=== PATIENT | female | born 1960 | race Caucasian/White ===

== ENCOUNTER 2022-10-10 07:24 | Outpatient (REF) | payer OTHER, SELFPAY ==
--- NOTE | ~2022-10-10 | XR_ITS ---
EXAMINATION: XR HAND/WRIST, BILATERAL XR KNEE, BILATERAL XR AP STANDING VIEW BOTH KNEES XR FOOT, BILATERAL XR ANKLE, BILATERAL CLINICAL INFORMATION: Arthropathic psoriasis. COMPARISON: None available. TECHNIQUE: 4 views of each hand/wrist. AP standing view both knees. 3 views of each knee. 3 views of each ankle. 3 views of each foot. 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 Mild osteoarthritis of the 1st interphalangeal joint. No periarticular osteopenia, erosions, or suspicious soft tissue calcifications. 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 Mild osteoarthritis of the 1st interphalangeal joint. No periarticular osteopenia, erosions, or suspicious soft tissue calcifications. Small chronic ossification at the tip of the ulnar styloid. Bilateral knees: No joint space narrowing. Bone mineralization is normal. No joint effusions. No acute abnormality or suspicious soft tissue calcification. Right ankle/foot: Mild soft tissue swelling/subcutaneous edema. No significant degenerative findings. The ankle mortise is preserved. No periarticular osteopenia, erosions, or suspicious soft tissue calcifications. No acute osseous abnormality. Left ankle/foot: Mild soft tissue swelling/subcutaneous edema. No significant degenerative findings. The ankle mortise is preserved. No periarticular osteopenia, erosions, or suspicious soft tissue calcifications. No acute osseous abnormality. Incidental bone island within the 2nd metatarsal head. XR/XR hand wrist RT IMPRESSION: No evidence of an active inflammatory arthropathy. Mild degenerative findings as described.
--- NOTE | ~2022-10-10 | XR_ITS ---
EXAMINATION: XR HAND/WRIST, BILATERAL XR KNEE, BILATERAL XR AP STANDING VIEW BOTH KNEES XR FOOT, BILATERAL XR ANKLE, BILATERAL CLINICAL INFORMATION: Arthropathic psoriasis. COMPARISON: None available. TECHNIQUE: 4 views of each hand/wrist. AP standing view both knees. 3 views of each knee. 3 views of each ankle. 3 views of each foot. 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 Mild osteoarthritis of the 1st interphalangeal joint. No periarticular osteopenia, erosions, or suspicious soft tissue calcifications. 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 Mild osteoarthritis of the 1st interphalangeal joint. No periarticular osteopenia, erosions, or suspicious soft tissue calcifications. Small chronic ossification at the tip of the ulnar styloid. Bilateral knees: No joint space narrowing. Bone mineralization is normal. No joint effusions. No acute abnormality or suspicious soft tissue calcification. Right ankle/foot: Mild soft tissue swelling/subcutaneous edema. No significant degenerative findings. The ankle mortise is preserved. No periarticular osteopenia, erosions, or suspicious soft tissue calcifications. No acute osseous abnormality. Left ankle/foot: Mild soft tissue swelling/subcutaneous edema. No significant degenerative findings. The ankle mortise is preserved. No periarticular osteopenia, erosions, or suspicious soft tissue calcifications. No acute osseous abnormality. Incidental bone island within the 2nd metatarsal head. XR/XR foot LT min 3V IMPRESSION: No evidence of an active inflammatory arthropathy. Mild degenerative findings as described.
--- NOTE | ~2022-10-10 | XR_ITS ---
EXAMINATION: XR HAND/WRIST, BILATERAL XR KNEE, BILATERAL XR AP STANDING VIEW BOTH KNEES XR FOOT, BILATERAL XR ANKLE, BILATERAL CLINICAL INFORMATION: Arthropathic psoriasis. COMPARISON: None available. TECHNIQUE: 4 views of each hand/wrist. AP standing view both knees. 3 views of each knee. 3 views of each ankle. 3 views of each foot. 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 Mild osteoarthritis of the 1st interphalangeal joint. No periarticular osteopenia, erosions, or suspicious soft tissue calcifications. 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 Mild osteoarthritis of the 1st interphalangeal joint. No periarticular osteopenia, erosions, or suspicious soft tissue calcifications. Small chronic ossification at the tip of the ulnar styloid. Bilateral knees: No joint space narrowing. Bone mineralization is normal. No joint effusions. No acute abnormality or suspicious soft tissue calcification. Right ankle/foot: Mild soft tissue swelling/subcutaneous edema. No significant degenerative findings. The ankle mortise is preserved. No periarticular osteopenia, erosions, or suspicious soft tissue calcifications. No acute osseous abnormality. Left ankle/foot: Mild soft tissue swelling/subcutaneous edema. No significant degenerative findings. The ankle mortise is preserved. No periarticular osteopenia, erosions, or suspicious soft tissue calcifications. No acute osseous abnormality. Incidental bone island within the 2nd metatarsal head. XR/XR knee RT 3V IMPRESSION: No evidence of an active inflammatory arthropathy. Mild degenerative findings as described.
--- NOTE | ~2022-10-10 | XR_ITS ---
EXAMINATION: XR HAND/WRIST, BILATERAL XR KNEE, BILATERAL XR AP STANDING VIEW BOTH KNEES XR FOOT, BILATERAL XR ANKLE, BILATERAL CLINICAL INFORMATION: Arthropathic psoriasis. COMPARISON: None available. TECHNIQUE: 4 views of each hand/wrist. AP standing view both knees. 3 views of each knee. 3 views of each ankle. 3 views of each foot. 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 Mild osteoarthritis of the 1st interphalangeal joint. No periarticular osteopenia, erosions, or suspicious soft tissue calcifications. 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 Mild osteoarthritis of the 1st interphalangeal joint. No periarticular osteopenia, erosions, or suspicious soft tissue calcifications. Small chronic ossification at the tip of the ulnar styloid. Bilateral knees: No joint space narrowing. Bone mineralization is normal. No joint effusions. No acute abnormality or suspicious soft tissue calcification. Right ankle/foot: Mild soft tissue swelling/subcutaneous edema. No significant degenerative findings. The ankle mortise is preserved. No periarticular osteopenia, erosions, or suspicious soft tissue calcifications. No acute osseous abnormality. Left ankle/foot: Mild soft tissue swelling/subcutaneous edema. No significant degenerative findings. The ankle mortise is preserved. No periarticular osteopenia, erosions, or suspicious soft tissue calcifications. No acute osseous abnormality. Incidental bone island within the 2nd metatarsal head. XR/XR ankle RT min 3V IMPRESSION: No evidence of an active inflammatory arthropathy. Mild degenerative findings as described.
--- NOTE | ~2022-10-10 | XR_ITS ---
EXAMINATION: XR HAND/WRIST, BILATERAL XR KNEE, BILATERAL XR AP STANDING VIEW BOTH KNEES XR FOOT, BILATERAL XR ANKLE, BILATERAL CLINICAL INFORMATION: Arthropathic psoriasis. COMPARISON: None available. TECHNIQUE: 4 views of each hand/wrist. AP standing view both knees. 3 views of each knee. 3 views of each ankle. 3 views of each foot. 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 Mild osteoarthritis of the 1st interphalangeal joint. No periarticular osteopenia, erosions, or suspicious soft tissue calcifications. 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 Mild osteoarthritis of the 1st interphalangeal joint. No periarticular osteopenia, erosions, or suspicious soft tissue calcifications. Small chronic ossification at the tip of the ulnar styloid. Bilateral knees: No joint space narrowing. Bone mineralization is normal. No joint effusions. No acute abnormality or suspicious soft tissue calcification. Right ankle/foot: Mild soft tissue swelling/subcutaneous edema. No significant degenerative findings. The ankle mortise is preserved. No periarticular osteopenia, erosions, or suspicious soft tissue calcifications. No acute osseous abnormality. Left ankle/foot: Mild soft tissue swelling/subcutaneous edema. No significant degenerative findings. The ankle mortise is preserved. No periarticular osteopenia, erosions, or suspicious soft tissue calcifications. No acute osseous abnormality. Incidental bone island within the 2nd metatarsal head. XR/XR foot RT min 3V IMPRESSION: No evidence of an active inflammatory arthropathy. Mild degenerative findings as described.
--- NOTE | ~2022-10-10 | XR_ITS ---
EXAMINATION: XR HAND/WRIST, BILATERAL XR KNEE, BILATERAL XR AP STANDING VIEW BOTH KNEES XR FOOT, BILATERAL XR ANKLE, BILATERAL CLINICAL INFORMATION: Arthropathic psoriasis. COMPARISON: None available. TECHNIQUE: 4 views of each hand/wrist. AP standing view both knees. 3 views of each knee. 3 views of each ankle. 3 views of each foot. 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 Mild osteoarthritis of the 1st interphalangeal joint. No periarticular osteopenia, erosions, or suspicious soft tissue calcifications. 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 Mild osteoarthritis of the 1st interphalangeal joint. No periarticular osteopenia, erosions, or suspicious soft tissue calcifications. Small chronic ossification at the tip of the ulnar styloid. Bilateral knees: No joint space narrowing. Bone mineralization is normal. No joint effusions. No acute abnormality or suspicious soft tissue calcification. Right ankle/foot: Mild soft tissue swelling/subcutaneous edema. No significant degenerative findings. The ankle mortise is preserved. No periarticular osteopenia, erosions, or suspicious soft tissue calcifications. No acute osseous abnormality. Left ankle/foot: Mild soft tissue swelling/subcutaneous edema. No significant degenerative findings. The ankle mortise is preserved. No periarticular osteopenia, erosions, or suspicious soft tissue calcifications. No acute osseous abnormality. Incidental bone island within the 2nd metatarsal head. XR/XR ankle LT min 3V IMPRESSION: No evidence of an active inflammatory arthropathy. Mild degenerative findings as described.
--- NOTE | ~2022-10-10 | XR_ITS ---
EXAMINATION: XR HAND/WRIST, BILATERAL XR KNEE, BILATERAL XR AP STANDING VIEW BOTH KNEES XR FOOT, BILATERAL XR ANKLE, BILATERAL CLINICAL INFORMATION: Arthropathic psoriasis. COMPARISON: None available. TECHNIQUE: 4 views of each hand/wrist. AP standing view both knees. 3 views of each knee. 3 views of each ankle. 3 views of each foot. 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 Mild osteoarthritis of the 1st interphalangeal joint. No periarticular osteopenia, erosions, or suspicious soft tissue calcifications. 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 Mild osteoarthritis of the 1st interphalangeal joint. No periarticular osteopenia, erosions, or suspicious soft tissue calcifications. Small chronic ossification at the tip of the ulnar styloid. Bilateral knees: No joint space narrowing. Bone mineralization is normal. No joint effusions. No acute abnormality or suspicious soft tissue calcification. Right ankle/foot: Mild soft tissue swelling/subcutaneous edema. No significant degenerative findings. The ankle mortise is preserved. No periarticular osteopenia, erosions, or suspicious soft tissue calcifications. No acute osseous abnormality. Left ankle/foot: Mild soft tissue swelling/subcutaneous edema. No significant degenerative findings. The ankle mortise is preserved. No periarticular osteopenia, erosions, or suspicious soft tissue calcifications. No acute osseous abnormality. Incidental bone island within the 2nd metatarsal head. XR/XR knee standing BI IMPRESSION: No evidence of an active inflammatory arthropathy. Mild degenerative findings as described.
--- NOTE | ~2022-10-10 | XR_ITS ---
EXAMINATION: XR HAND/WRIST, BILATERAL XR KNEE, BILATERAL XR AP STANDING VIEW BOTH KNEES XR FOOT, BILATERAL XR ANKLE, BILATERAL CLINICAL INFORMATION: Arthropathic psoriasis. COMPARISON: None available. TECHNIQUE: 4 views of each hand/wrist. AP standing view both knees. 3 views of each knee. 3 views of each ankle. 3 views of each foot. 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 Mild osteoarthritis of the 1st interphalangeal joint. No periarticular osteopenia, erosions, or suspicious soft tissue calcifications. 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 Mild osteoarthritis of the 1st interphalangeal joint. No periarticular osteopenia, erosions, or suspicious soft tissue calcifications. Small chronic ossification at the tip of the ulnar styloid. Bilateral knees: No joint space narrowing. Bone mineralization is normal. No joint effusions. No acute abnormality or suspicious soft tissue calcification. Right ankle/foot: Mild soft tissue swelling/subcutaneous edema. No significant degenerative findings. The ankle mortise is preserved. No periarticular osteopenia, erosions, or suspicious soft tissue calcifications. No acute osseous abnormality. Left ankle/foot: Mild soft tissue swelling/subcutaneous edema. No significant degenerative findings. The ankle mortise is preserved. No periarticular osteopenia, erosions, or suspicious soft tissue calcifications. No acute osseous abnormality. Incidental bone island within the 2nd metatarsal head. XR/XR hand wrist LT IMPRESSION: No evidence of an active inflammatory arthropathy. Mild degenerative findings as described.
--- NOTE | ~2022-10-10 | XR_ITS ---
EXAMINATION: XR HAND/WRIST, BILATERAL XR KNEE, BILATERAL XR AP STANDING VIEW BOTH KNEES XR FOOT, BILATERAL XR ANKLE, BILATERAL CLINICAL INFORMATION: Arthropathic psoriasis. COMPARISON: None available. TECHNIQUE: 4 views of each hand/wrist. AP standing view both knees. 3 views of each knee. 3 views of each ankle. 3 views of each foot. 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 Mild osteoarthritis of the 1st interphalangeal joint. No periarticular osteopenia, erosions, or suspicious soft tissue calcifications. 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 Mild osteoarthritis of the 1st interphalangeal joint. No periarticular osteopenia, erosions, or suspicious soft tissue calcifications. Small chronic ossification at the tip of the ulnar styloid. Bilateral knees: No joint space narrowing. Bone mineralization is normal. No joint effusions. No acute abnormality or suspicious soft tissue calcification. Right ankle/foot: Mild soft tissue swelling/subcutaneous edema. No significant degenerative findings. The ankle mortise is preserved. No periarticular osteopenia, erosions, or suspicious soft tissue calcifications. No acute osseous abnormality. Left ankle/foot: Mild soft tissue swelling/subcutaneous edema. No significant degenerative findings. The ankle mortise is preserved. No periarticular osteopenia, erosions, or suspicious soft tissue calcifications. No acute osseous abnormality. Incidental bone island within the 2nd metatarsal head. XR/XR knee LT 3V IMPRESSION: No evidence of an active inflammatory arthropathy. Mild degenerative findings as described.
[2022-10-10 08:49] LABS: MANUAL DIFF FLAG NO
[2022-10-10 09:23] LABS: Basophils Absolute Auto 0.1 X10*3/uL (0.0-0.2); Basophils Percent Auto 0.4 % (0-2); Eosinophils Absolute Auto 0.1 X10*3/uL (0.0-0.4); Eosinophils Percent Auto 0.9 % (0-4); Hematocrit 40.4 % (37.0-47.0); Hemoglobin 13.2 g/dl (12.0-16.0); Imm Gran Abs Auto 0.09 X10*3/uL (0.00-0.03); Imm Gran Pct Auto 0.6 % (0.0-0.4); Lymphocytes Absolute Auto 1.6 X10*3/uL (1.2-4.9); Lymphocytes Percent Auto 11.4 % (20-40); Mean Corpuscular HGB Conc 32.7 g/dl (31.0-35.0); Mean Corpuscular Volume 94.8 fL (80.0-98.0); Mean Platelet Volume 9.9 fL (9.4-12.3); Monocytes Absolute Auto 1.2 X10*3/uL (0.1-1.2); Monocytes Percent Auto 8.3 % (2-11); Neutrophils Absolute Auto 11.1 x10*3/uL (2.0-8.3); Neutrophils Percent Auto 78.4 % (45-73); Platelet Count 346 X10*3/uL (160-400); Red Blood Count 4.26 X10*6/uL (4.20-5.50); Red Cell Distribution Width 12.1 % (11.0-16.0); White Blood Count 14.2 X10*3/uL (4.8-10.8)
[2022-10-10 09:48] LABS: Alanine Aminotransferase 20 U/L (0-31); Albumin Level 4.1 g/dL (3.5-5.0); Alkaline Phosphatase 67 U/L (39-117); Anion Gap 14 (12-20); Aspartate Amino Transferase 17 U/L (5-31); Bilirubin Total 0.5 mg/dL (0.0-1.0); Blood Urea Nitrogen 14 mg/dL (9-16); C Reactive Protein 1.44 mg/dL (< or = 0.50); Calcium 10.1 mg/dL (8.4-10.2); Carbon Dioxide 26 mmol/L (22-29); Chloride 106 mmol/L (96-108); Estimated Glomerular Filt Rate 48; Glucose Random 114 mg/dL (60-115); Potassium 4.2 mmol/L (3.3-5.1); Sodium 142 mmol/L (135-145)
[2022-10-10 10:04] LABS: HBS Num1 0.24 mIU/mL (0-7.99); HBc Num1 0.23 S/CO (0.00-0.79); HBsAGNum1 0.29 S/CO (0.00-0.99); Hepatitis A Antibody IgM 0.21 Index (0-0.79); Hepatitis B Core Antibody Nonreactive (Nonreactive); Hepatitis B Surface Antigen Negative (Negative); ~HepC Num1 0.14 S/CO (0.00-0.79); ~Hepatitis A Antibody IgM Nonreactive (Nonreactive); ~Hepatitis B Surface Antibody NONREACTIVE (Nonreactive); ~Hepatitis C Antibody Nonreactive (Nonreactive)
[2022-10-10 10:27] LABS: Erythrocyte Sedimentation Rate 27 MM/HR (0-20)
[2022-10-12 23:33] LABS: TS Negative Control Passed; TS Panel A 0; TS Panel B 0; TS Positive Control Passed; TSpotTB Negative (Negative)
== END 2022-10-10 07:25 | disposition home or self-care (01) ==
LOC: HO.LAB 07:24
PROVIDERS: PCP Nurse Practitioner Family; Visit Provider Student in an Organized Health Care Education/Training Program
DX: L40.50 Arthropathic psoriasis, unspecified (principal); M25.50 Pain in unspecified joint; E78.5 Hyperlipidemia, unspecified; I10 Essential (primary) hypertension; Z79.899 Other long term (current) drug therapy
CPT/HCPCS: 36415; 73110; 73130; 73562; 73565; 73610; 73630; 80053; 85025; 85652; 86140; 86481; 86704; 86706; 86709; 86803; 87340

== ENCOUNTER 2022-11-07 09:21 | Outpatient (REF) | payer OTHER, SELFPAY ==
--- NOTE | ~2022-11-07 | XR_ITS ---
EXAMINATION: XR CHEST CLINICAL INFORMATION: Cough. Pneumonia. COMPARISON: None available. TECHNIQUE: 2 views of the chest were obtained. FINDINGS: Abnormal. There are patchy airspace opacities left upper lobe and right upper lobe and possibly right infrahilar region suspicious for multifocal pneumonia. No pleural effusion. Heart and pulmonary vessels are normal. XR/XR chest 2V IMPRESSION: Pneumonia. Follow-up until complete clearing is advised.
[2022-11-07 10:32] LABS: MANUAL DIFF FLAG NO
[2022-11-07 10:38] LABS: Basophils Absolute Auto 0.1 X10*3/uL (0.0-0.2); Basophils Percent Auto 0.6 % (0-2); Eosinophils Absolute Auto 0.4 X10*3/uL (0.0-0.4); Eosinophils Percent Auto 2.2 % (0-4); Hematocrit 36.9 % (37.0-47.0); Hemoglobin 11.6 g/dl (12.0-16.0); Imm Gran Abs Auto 0.25 X10*3/uL (0.00-0.03); Imm Gran Pct Auto 1.5 % (0.0-0.4); Lymphocytes Absolute Auto 2.2 X10*3/uL (1.2-4.9); Mean Corpuscular HGB Conc 31.4 g/dl (31.0-35.0); Mean Corpuscular Hemoglobin 30.8 pg (27.0-33.0); Mean Corpuscular Volume 97.9 fL (80.0-98.0); Mean Platelet Volume 9.6 fL (9.4-12.3); Monocytes Absolute Auto 1.2 X10*3/uL (0.1-1.2); Monocytes Percent Auto 7.1 % (2-11); Neutrophils Absolute Auto 12.5 x10*3/uL (2.0-8.3); Neutrophils Percent Auto 75.6 % (45-73); Platelet Count 370 X10*3/uL (160-400); Red Blood Count 3.77 X10*6/uL (4.20-5.50); White Blood Count 16.6 X10*3/uL (4.8-10.8)
[2022-11-07 11:10] LABS: Alanine Aminotransferase 36 U/L (0-31); Albumin Level 3.7 g/dL (3.5-5.0); Alkaline Phosphatase 71 U/L (39-117); Anion Gap 12 (12-20); Aspartate Amino Transferase 20 U/L (5-31); Bilirubin Total 0.4 mg/dL (0.0-1.0); Blood Urea Nitrogen 7 mg/dL (9-16); C Reactive Protein 7.22 mg/dL (< or = 0.50); Calcium 9.5 mg/dL (8.4-10.2); Carbon Dioxide 29 mmol/L (22-29); Chloride 105 mmol/L (96-108); Estimated Glomerular Filt Rate 53; Glucose Random 155 mg/dL (60-115); Potassium 4.3 mmol/L (3.3-5.1); Sodium 142 mmol/L (135-145); Total Protein 6.5 g/dL (6.5-8.0)
[2022-11-07 11:43] LABS: Erythrocyte Sedimentation Rate 85 MM/HR (0-20)
== END 2022-11-07 09:22 | disposition home or self-care (01) ==
LOC: HO.10HDL 09:21
PROVIDERS: Visit Provider Student in an Organized Health Care Education/Training Program
DX: J18.9 Pneumonia, unspecified organism (principal); L40.50 Arthropathic psoriasis, unspecified
CPT/HCPCS: 36415; 71046; 80053; 85025; 85652; 86140

== ENCOUNTER → 2022-12-05 08:02 | Outpatient (BNVA) | payer OTHER, SELFPAY | PROVIDERS: PCP Nurse Practitioner Family; Visit Provider Student in an Organized Health Care Education/Training Program ==

== ENCOUNTER 2023-01-08 16:43 | Outpatient (REF) | payer OTHER, SELFPAY ==
--- NOTE | ~2023-01-08 | XR_ITS ---
EXAMINATION: XR CHEST CLINICAL INFORMATION: Pneumonia follow-up. COMPARISON: November 07, 2022. TECHNIQUE: 2 views of the chest were obtained. FINDINGS: There is improvement in bilateral upper lobe disease now with the appearance of scarring. No acute parenchymal disease, pneumothorax, or pleural effusion. Heart normal size. No evidence of pulmonary edema. XR/XR chest 2V IMPRESSION: Improved appearance of bilateral upper lobe densities but without total resolution. Recommend 6 month follow up chest x-ray to ensure stability or further improvement.
== END 2023-01-08 16:44 | disposition home or self-care (01) ==
LOC: HO.XRAY 16:43
PROVIDERS: PCP Nurse Practitioner Family; Visit Provider Student in an Organized Health Care Education/Training Program
DX: J18.9 Pneumonia, unspecified organism (principal)
CPT/HCPCS: 71046

== ENCOUNTER 2023-02-12 07:17 | Outpatient (AMB) | payer OTHER, SELFPAY ==
[2023-02-12 07:37] VITALS: BP 121/78; PULSE 76; TEMP 36.7; BMI 32.3
--- NOTE | 2023-02-12 07:37 | A.OFFVIS_ITS ---
Intake Vital Signs 02/12/23 07:37 Height 5 ft 2 in Weight 176 lb 5.917 oz BMI 32.3 BP 121/78 Blood Pressure Location Rt brachial Position Sitting Pulse 76 Pulse Source Palpation Temp 98.1 F Temp Source Temporal Artery Scan Intake Visit Reasons: PsA - Confirmed Allergies Thiazides Allergy (Intermediate, Verified 12/05/22 08:09) makes her jumpy Medication List - Last Reconciled 02/12/23 by Kevin Alegria MD amlodipine 10 mg PO DAILY calcium carbonate-vitamin D2 600 mg calcium- 200 unit 1 tab PO DAILY clotrimazole 1% appl topical ezetimibe 10 mg PO DAILY levothyroxine 88 mcg PO QAM metoprolol succinate ER 50 mg PO DAILY nystatin (Nystop) 1 appl topical BID prednisone 5 mg PO DAILY prednisone 2.5 mg PO DAILY triamcinolone acetonide 0.1% 1 appl topical DAILY HPI HPI Comments History of Present Illness Details 61-year-old female with psoriatic arthritis returns for follow-up. Patient was doing well overall with regards to her joint pain and swelling until about a month ago when she flared with multiple swollen and tender joints. A prednisone taper was prescribed by Dr. Juarez. Patient is currently on 10 mg of prednisone with complete resolution of swollen and tender joints. Patient states that her cough is much better overall. She coughs about once a day, usually in the morning to clear her throat. No fever or shortness of breath. She gained about 5 lb on prednisone. Over the us month, patient had a couple of episodes of feeling that the room is spinning, she went to the emergency room and had blood work which was unremarkable, meclizine was prescribed which seems to be helpful. She denies hearing loss, denies tinnitus or ear pain Initial history: This is a 61-year-old female with a past medical history of dyslipidemia and hypertension who presents for evaluation of multiple joint pains. Patient stated that around 15 years ago she developed pain and swelling of her bilateral lower extremities as well as her hands and wrists. This was after her niacin dose was increased. She was treated with a short course of prednisone with resolution of her symptoms. Back in October 2021 she developed an itchy skin rash under her breasts and behind her ears. She was using triamcinolone cream with some improvement. She also had sore throat. She was evaluated by her PCP and her inflammatory markers were elevated. She was started on a prednisone taper with dramatic improvement of her symptoms in a few days, symptoms came back when prednisone was tapered off. She was evaluated by Dr. Ribeiro in December 2021 and deemed to have PMR. She was started on prednisone 15 mg daily and tapered by 1 mg a month. She is currently on 7 mg daily and she states that she is developing swelling of her wrists, fingers, knees, ankles. Continues to have morning stiffness lasting a few hours. Continues to have a skin rash behind her ears. There is no history suggestive of uveitis or IBD. Her nephew has ulcerative colitis [facility] Medical History (Updated 02/12/23 @ 08:10 by Kevin Alegria MD) Essential hypertension Hypothyroidism Mixed hyperlipidemia PMR (polymyalgia rheumatica) Surgical History History of lumpectomy of left breast Family History Mother Thyroid disease CHF (congestive heart failure) Myocardial infarct Hx of CABG Sister PVD (peripheral vascular disease) Colon cancer Father COPD (chronic obstructive pulmonary disease) Lung cancer Social History Household Members: Spouse Alcohol intake: current Alcohol intake frequency: does not drink Patient Tobacco Use Status: Former Tobacco user Quit Date: 1999 Current occupational status: employed 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 ENT Reports vertigo and Reports dizziness Musc Denies arthralgias and Denies joint swelling Neuro Reports vertigo and Reports dizziness Physical Exam Const General: cooperative, healthy appearing and comfortable Nutritional Appearance: average body habitus Limitations: no limitations HEENT Head: Yes normocephalic and Yes atraumatic Mouth: moist mucous membranes Resp Effort & Inspection: normal respiratory effort and able to speak in complete sentences Auscultation: crackles on the left at the base Cardio Rate: regular rate Rhythm: regular rhythm Heart sounds: S1 normal heart sound present and S2 normal heart sound present GI Inspection: No distended Palpation (GI): Soft to palpation and nontender Skin General skin exam: no rashes or lesions noted Extrem Other: No active synovitis Results Reviewed Results Reviewed: Labs 2021 DEDE/RF/CCP/HLA B27/14-33 all negative SPEP/immunofixation normal TSH 2.07 CMP unremarkable CPK 66 (21-215) Neck x-ray degenerative changes Labs 11/2021 ESR 30 CRP 36 (<9) Labs December/2021 ESR 35 CRP 8.5 Labs February/2022 ESR 4 CRP negative DEXA right femoral neck T-score-2.1 right total total hip -1.1 -1.8 left femoral neck -1.9 left total hip FRAX 10% for major osteoporotic fracture 1% for hip fracture Assessment & Plan Assessment & Plan (1) Psoriatic arthritis: Comment: dx 10/04 MTX started 10/04, then patient developed pneumonitis/pneumonia. MTX DC 11/04 Prednisone all through LEF 03/06 Code(s): L40.50 - Arthropathic psoriasis, unspecified Plan: This is a 61-year-old female with psoriatic arthritis who presents for follow- up. About 4 months ago patient flared and prednisone dose had to be increased to 10 mg daily. Today patient is doing well with no active synovitis on prednisone 10 mg daily. Will need to add a DMARD. Patient developed in pneumonitis/pneumonia episode soon after starting methotrexate and there is some suspicion of MTX induced pneumonitis. Over the last 2 months patient has developed vertigo. Discussed multiple options for DMARDs. Patient would like to avoid biologics at this stage as she believes she will have a high co-pay. Discussed risks and benefits of leflunomide. Start leflunomide 10 mg daily for 1 week then 20 mg daily. Labs in 4 weeks and in 10 weeks for safety monitoring Reduce prednisone by 2.5 mg every 2 weeks then stop Infectious screening: Hepatitis panel and T spot -ve 2022 (2) Vertigo: Code(s): R42 - Dizziness and giddiness Plan: I suggested evaluation by ENT (3) Cough: Code(s): R05.9 - Cough, unspecified Qualifiers: Cough type: subacute Qualified Code(s): R05.2 - Subacute cough Plan: Patient developed a pneumonia like episode with cough without fevers, chest x- ray showing multifocal opacities. This was 4 weeks after starting methotrexate. This could be MTX induced pneumonitis versus pneumonia. Symptoms significantly improved after holding methotrexate and completing an antibiotic course. Patient states that she now coughs about once or twice a day. Usually in the morning. No fevers, no shortness of breath. Repeat chest x-ray 2 months after initial episode shows significant improvement. Will repeat chest x-ray in a few months Plan I spent 46 minutes reviewing patient's chart, evaluating patient, ordering diagnostic workup, counseling patient and documenting in the chart Orders: Orders Comprehensive Met. Panel 10 Weeks L40.50 - Arthropathic psoriasis, unspecified C Reactive Protein 10 Weeks L40.50 - Arthropathic psoriasis, unspecified Complete Blood Count Auto Diff 10 Weeks L40.50 - Arthropathic psoriasis, unspecified Erythrocyte Sedimentation Rate 10 Weeks L40.50 - Arthropathic psoriasis, unspecified Comprehensive Met. Panel 4 Weeks L40.50 - Arthropathic psoriasis, unspecified C Reactive Protein 4 Weeks L40.50 - Arthropathic psoriasis, unspecified Complete Blood Count Auto Diff 4 Weeks L40.50 - Arthropathic psoriasis, unspecified Erythrocyte Sedimentation Rate 4 Weeks L40.50 - Arthropathic psoriasis, unspecified Medications: New leflunomide Take 1 tab daily with food for 1 week then 2 tabs daily with food 180 tabs 0RF Coding Level of Care Code Est Pt Level 5 (42171) Diagnoses Psoriatic arthritis L40.50 Vertigo R42 Cough R05.2 Cough type: subacute
== END 2023-02-12 08:02 | disposition home or self-care (01) ==
PROVIDERS: PCP Nurse Practitioner Family; Visit Provider Student in an Organized Health Care Education/Training Program
DX: L40.50 Arthropathic psoriasis, unspecified (principal); R42 Dizziness and giddiness; R05.2 Subacute cough
CPT/HCPCS: 99215

== ENCOUNTER → 2023-02-12 07:17 | Outpatient (BNVA) | payer OTHER, SELFPAY | PROVIDERS: Visit Provider Student in an Organized Health Care Education/Training Program ==

== ENCOUNTER 2023-03-29 12:24 | Outpatient (REF) | payer OTHER, SELFPAY ==
[2023-03-29 13:34] LABS: MANUAL DIFF FLAG NO
[2023-03-29 13:52] LABS: Basophils Absolute Auto 0.1 X10*3/uL (0.0-0.2); Basophils Percent Auto 0.8 % (0-2); Eosinophils Absolute Auto 0.2 X10*3/uL (0.0-0.4); Eosinophils Percent Auto 2.9 % (0-4); Hematocrit 42.9 % (37.0-47.0); Hemoglobin 14.1 g/dl (12.0-16.0); Imm Gran Abs Auto 0.02 X10*3/uL (0.00-0.03); Imm Gran Pct Auto 0.3 % (0.0-0.4); Lymphocytes Absolute Auto 1.8 X10*3/uL (1.2-4.9); Lymphocytes Percent Auto 28.9 % (20-40); Mean Corpuscular HGB Conc 32.9 g/dl (31.0-35.0); Mean Corpuscular Hemoglobin 29.9 pg (27.0-33.0); Mean Corpuscular Volume 91.1 fL (80.0-98.0); Mean Platelet Volume 10.8 fL (9.4-12.3); Monocytes Absolute Auto 0.8 X10*3/uL (0.1-1.2); Monocytes Percent Auto 12.1 % (2-11); Neutrophils Absolute Auto 3.5 x10*3/uL (2.0-8.3); Platelet Count 247 X10*3/uL (160-400); Red Blood Count 4.71 X10*6/uL (4.20-5.50); Red Cell Distribution Width 12.4 % (11.0-16.0); White Blood Count 6.3 X10*3/uL (4.8-10.8)
[2023-03-29 14:28] LABS: Erythrocyte Sedimentation Rate 28 MM/HR (0-20)
[2023-03-29 14:35] LABS: Alanine Aminotransferase 43 U/L (0-31); Alkaline Phosphatase 91 U/L (39-117); Anion Gap 11 (12-20); Aspartate Amino Transferase 36 U/L (5-31); Bilirubin Total 0.3 mg/dL (0.0-1.0); Blood Urea Nitrogen 10 mg/dL (9-16); C Reactive Protein 0.26 mg/dL (< or = 0.50); Calcium 9.6 mg/dL (8.4-10.2); Carbon Dioxide 27 mmol/L (22-29); Chloride 107 mmol/L (96-108); Estimated Glomerular Filt Rate > 60; Glucose Random 89 mg/dL (60-115); Potassium 3.6 mmol/L (3.3-5.1); Sodium 141 mmol/L (135-145); Total Protein 7.5 g/dL (6.5-8.0)
== END 2023-03-29 12:25 | disposition home or self-care (01) ==
LOC: HO.10HDL 12:24
PROVIDERS: Visit Provider Student in an Organized Health Care Education/Training Program
DX: L40.50 Arthropathic psoriasis, unspecified (principal)
CPT/HCPCS: 36415; 80053; 85025; 85652; 86140

== ENCOUNTER 2023-04-26 10:18 | Outpatient (REF) | payer OTHER, SELFPAY ==
[2023-04-26 13:07] LABS: MANUAL DIFF FLAG NO
[2023-04-26 13:19] LABS: Basophils Absolute Auto 0.1 X10*3/uL (0.0-0.2); Eosinophils Absolute Auto 0.2 X10*3/uL (0.0-0.4); Eosinophils Percent Auto 3.3 % (0-4); Hematocrit 42.4 % (37.0-47.0); Hemoglobin 13.5 g/dl (12.0-16.0); Imm Gran Abs Auto 0.02 X10*3/uL (0.00-0.03); Imm Gran Pct Auto 0.4 % (0.0-0.4); Lymphocytes Absolute Auto 1.7 X10*3/uL (1.2-4.9); Lymphocytes Percent Auto 33.1 % (20-40); Mean Corpuscular HGB Conc 31.8 g/dl (31.0-35.0); Mean Corpuscular Hemoglobin 29.8 pg (27.0-33.0); Mean Corpuscular Volume 93.6 fL (80.0-98.0); Mean Platelet Volume 11.9 fL (9.4-12.3); Monocytes Absolute Auto 0.5 X10*3/uL (0.1-1.2); Monocytes Percent Auto 9.4 % (2-11); Neutrophils Absolute Auto 2.8 x10*3/uL (2.0-8.3); Neutrophils Percent Auto 52.8 % (45-73); Platelet Count 206 X10*3/uL (160-400); Red Blood Count 4.53 X10*6/uL (4.20-5.50); Red Cell Distribution Width 12.4 % (11.0-16.0); White Blood Count 5.2 X10*3/uL (4.8-10.8)
[2023-04-26 14:07] LABS: Erythrocyte Sedimentation Rate 16 MM/HR (0-20)
[2023-04-26 14:40] LABS: Alanine Aminotransferase 36 U/L (0-31); Albumin Level 3.8 g/dL (3.5-5.0); Alkaline Phosphatase 98 U/L (39-117); Anion Gap 11 (12-20); Aspartate Amino Transferase 32 U/L (5-31); Bilirubin Total 0.4 mg/dL (0.0-1.0); Blood Urea Nitrogen 8 mg/dL (9-16); C Reactive Protein 0.34 mg/dL (< or = 0.50); Calcium 9.2 mg/dL (8.4-10.2); Carbon Dioxide 25 mmol/L (22-29); Chloride 110 mmol/L (96-108); Estimated Glomerular Filt Rate > 60; Glucose Random 116 mg/dL (60-115); Potassium 4.2 mmol/L (3.3-5.1); Sodium 142 mmol/L (135-145)
== END 2023-04-26 10:19 | disposition home or self-care (01) ==
LOC: HO.10HDL 10:18
PROVIDERS: Visit Provider Student in an Organized Health Care Education/Training Program
DX: L40.50 Arthropathic psoriasis, unspecified (principal)
CPT/HCPCS: 36415; 80053; 85025; 85652; 86140

== ENCOUNTER 2023-04-30 07:40 | Outpatient (AMB) | payer OTHER, SELFPAY ==
--- NOTE | 2023-04-30 07:41 | MHC.OFFVIS ---
Intake Vital Signs 04/30/23 07:42 Height 5 ft 2 in Weight 175 lb 4.28 oz BMI 32.1 BP 112/64 Blood Pressure Location Lt brachial Position Sitting Pulse 77 Pulse Source Pulse Oximeter Temp 97.9 F Temp Source Skin Pulse Oximetry (%) 97 Oxygen Delivery Method Room Air Intake Visit Reasons: 10 mnts f/u for PsA Intake Note: Pt presents today for follow up and test results. Leflunomide Skein Dyer Required: No Accompanied by: Self / Same As Patient Allergies Thiazides Allergy (Intermediate, Verified 04/30/23 07:42) makes her jumpy Medication List - Last Reconciled 04/30/23 by Kevin Alegria MD amlodipine 10 mg PO DAILY calcium carbonate-vitamin D2 600 mg calcium- 200 unit 1 tab PO DAILY clotrimazole 1% appl topical ezetimibe 10 mg PO DAILY levothyroxine 88 mcg PO QAM metoprolol succinate ER 50 mg PO DAILY nystatin (Nystop) 1 appl topical BID triamcinolone acetonide 0.1% 1 appl topical DAILY HPI HPI Comments History of Present Illness Details 62-year-old female with psoriatic arthritis returns for follow-up. About a month ago her labs showed mild transaminitis, I called patient and ask her to discontinue leflunomide. She had discontinued prednisone about 6 weeks ago. She states that she has not had any recurrent joint pain, swelling or stiffness. Has been feeling great recently. No complaints today. Initial history: This is a 61-year-old female with a past medical history of dyslipidemia and hypertension who presents for evaluation of multiple joint pains. Patient stated that around 15 years ago she developed pain and swelling of her bilateral lower extremities as well as her hands and wrists. This was after her niacin dose was increased. She was treated with a short course of prednisone with resolution of her symptoms. Back in October 2021 she developed an itchy skin rash under her breasts and behind her ears. She was using triamcinolone cream with some improvement. She also had sore throat. She was evaluated by her PCP and her inflammatory markers were elevated. She was started on a prednisone taper with dramatic improvement of her symptoms in a few days, symptoms came back when prednisone was tapered off. She was evaluated by Dr. Ribeiro in December 2021 and deemed to have PMR. She was started on prednisone 15 mg daily and tapered by 1 mg a month. She is currently on 7 mg daily and she states that she is developing swelling of her wrists, fingers, knees, ankles. Continues to have morning stiffness lasting a few hours. Continues to have a skin rash behind her ears. There is no history suggestive of uveitis or IBD. Her nephew has ulcerative colitis [facility] Medical History Essential hypertension Mixed hyperlipidemia PMR (polymyalgia rheumatica) Hypothyroidism Surgical History History of lumpectomy of left breast Family History Mother Thyroid disease CHF (congestive heart failure) Myocardial infarct Hx of CABG Sister PVD (peripheral vascular disease) Colon cancer Father COPD (chronic obstructive pulmonary disease) Lung cancer Social History Household Members: Spouse Alcohol intake: current Alcohol intake frequency: does not drink Patient Tobacco Use Status: Former Tobacco user Quit Date: 1999 Current occupational status: employed 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 [facility] Denies arthralgias, Denies joint swelling and Denies stiffness Physical Exam Vital Signs: Last Vital Signs Temp 97.9 F 04/30/23 07:42 Pulse 77 04/30/23 07:42 BP 112/64 04/30/23 07:42 Pulse Ox 97 04/30/23 07:42 Oxygen Delivery Method Room Air 04/30/23 07:42 BMI result Body Mass Index 32.1 Const General: cooperative, healthy appearing and comfortable Nutritional Appearance: average body habitus Limitations: no limitations HEENT Head: Yes normocephalic and Yes atraumatic Mouth: moist mucous membranes Resp Effort & Inspection: normal respiratory effort and able to speak in complete sentences Auscultation: clear to auscultation bilaterally Cardio Rate: regular rate Rhythm: regular rhythm Skin General skin exam: no rashes or lesions noted Extrem Other: No active synovitis Results Reviewed Results Reviewed: Labs 2021 DEDE/RF/CCP/HLA B27/14-33 all negative SPEP/immunofixation normal TSH 2.07 CMP unremarkable CPK 66 (21-215) Neck x-ray degenerative changes Labs 11/2021 ESR 30 CRP 36 (<9) Labs December/2021 ESR 35 CRP 8.5 Labs February/2022 ESR 4 CRP negative DEXA right femoral neck T-score-2.1 right total total hip -1.1 -1.8 left femoral neck -1.9 left total hip FRAX 10% for major osteoporotic fracture 1% for hip fracture Assessment & Plan Assessment & Plan (1) Psoriatic arthritis: Comment: dx 10/04 MTX started 10/04, then patient developed pneumonitis/pneumonia. MTX DC 11/04 Prednisone all through LEF 03/06 DC 04/06 transaminitis Code(s): L40.50 - Arthropathic psoriasis, unspecified Plan: This is a 62-year-old female with psoriatic arthritis who presents for follow-up. Leflunomide was discontinued a month ago due to transaminitis. Patient is off prednisone for at least 6 weeks. She is in remission today without DMARDs. Will monitor patient off DMARDs. Advised patient to call the clinic if she develops any recurrent arthritis Infectious screening: Hepatitis panel and T spot -ve 2022 Labs before next visit in 3 months (2) Transaminitis: Code(s): R74.01 - Elevation of levels of liver transaminase levels Plan: Mild transaminitis, trending down after leflunomide was discontinued. Repeat labs before next visit Plan I spent 26 minutes reviewing patient's chart, evaluating patient, ordering diagnostic workup, counseling patient and documenting in the chart Orders: Orders Comprehensive Met. Panel 3 Months L40.50 - Arthropathic psoriasis, unspecified Erythrocyte Sedimentation Rate 3 Months L40.50 - Arthropathic psoriasis, unspecified Complete Blood Count Auto Diff 3 Months L40.50 - Arthropathic psoriasis, unspecified C Reactive Protein 3 Months L40.50 - Arthropathic psoriasis, unspecified Coding Level of Care Code Est Pt Level 4 (19142) Diagnoses Psoriatic arthritis L40.50 Transaminitis R74.01
[2023-04-30 07:42] VITALS: BP 112/64; PULSE 77; TEMP 36.6; O2SAT 97; BMI 32.1
== END 2023-04-30 07:58 | disposition home or self-care (01) ==
PROVIDERS: PCP Nurse Practitioner Family; Visit Provider Student in an Organized Health Care Education/Training Program
DX: L40.50 Arthropathic psoriasis, unspecified (principal); R74.01 Elevation of levels of liver transaminase levels
CPT/HCPCS: 99214

== ENCOUNTER → 2023-04-30 07:40 | Outpatient (BNVA) | payer OTHER, SELFPAY | PROVIDERS: PCP Nurse Practitioner Family; Visit Provider Student in an Organized Health Care Education/Training Program ==

== ENCOUNTER 2023-07-29 16:27 | Outpatient (REF) | payer OTHER, SELFPAY ==
[2023-07-29 16:37] LABS: MANUAL DIFF FLAG NO
[2023-07-29 17:54] LABS: Basophils Absolute Auto 0.1 X10*3/uL (0.0-0.2); Basophils Percent Auto 0.7 % (0-2); Eosinophils Absolute Auto 0.2 X10*3/uL (0.0-0.4); Eosinophils Percent Auto 2.7 % (0-4); Hematocrit 42.9 % (37.0-47.0); Imm Gran Abs Auto 0.03 X10*3/uL (0.00-0.03); Imm Gran Pct Auto 0.4 % (0.0-0.4); Lymphocytes Absolute Auto 2.6 X10*3/uL (1.2-4.9); Mean Corpuscular HGB Conc 32.6 g/dl (31.0-35.0); Mean Corpuscular Volume 91.9 fL (80.0-98.0); Mean Platelet Volume 10.6 fL (9.4-12.3); Monocytes Absolute Auto 0.5 X10*3/uL (0.1-1.2); Monocytes Percent Auto 6.4 % (2-11); Neutrophils Percent Auto 58.8 % (45-73); Platelet Count 265 X10*3/uL (160-400); Red Blood Count 4.67 X10*6/uL (4.20-5.50); Red Cell Distribution Width 12.6 % (11.0-16.0); White Blood Count 8.5 X10*3/uL (4.8-10.8)
[2023-07-29 18:07] LABS: Alanine Aminotransferase 47 U/L (0-31); Albumin Level 4.4 g/dL (3.5-5.0); Alkaline Phosphatase 107 U/L (39-117); Anion Gap 14 (12-20); Aspartate Amino Transferase 38 U/L (5-31); Bilirubin Total 0.3 mg/dL (0.0-1.0); Blood Urea Nitrogen 13 mg/dL (9-16); C Reactive Protein 0.26 mg/dL (< or = 0.50); Calcium 10.4 mg/dL (8.4-10.2); Carbon Dioxide 29 mmol/L (22-29); Chloride 105 mmol/L (96-108); Estimated Glomerular Filt Rate 54; Glucose Random 102 mg/dL (60-115); Sodium 144 mmol/L (135-145); Total Protein 8.3 g/dL (6.5-8.0)
[2023-07-29 18:32] LABS: Erythrocyte Sedimentation Rate 21 MM/HR (0-20)
== END 2023-07-29 16:28 | disposition home or self-care (01) ==
LOC: HO.LAB 16:27
PROVIDERS: Visit Provider Student in an Organized Health Care Education/Training Program
DX: L40.50 Arthropathic psoriasis, unspecified (principal)
CPT/HCPCS: 36415; 80053; 85025; 85652; 86140

== ENCOUNTER 2023-07-31 07:35 | Outpatient (AMB) | payer OTHER, SELFPAY ==
--- NOTE | 2023-07-31 07:38 | A.OFFVIS_ITS ---
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 Accompanied by: Self / Same As Patient Allergies Thiazides Allergy (Intermediate, Verified 07/31/23 07:39) makes her jumpy Medication List - Last Reconciled 07/31/23 by Kevin Alegria MD amlodipine 10 mg PO DAILY calcium carbonate-vitamin D2 600 mg calcium- 200 unit 1 tab PO DAILY clotrimazole 1% appl topical ezetimibe 10 mg PO DAILY levothyroxine 75 mcg PO QAM metoprolol succinate ER 50 mg PO DAILY nystatin (Nystop) 1 appl topical BID triamcinolone acetonide 0.1% 1 appl topical DAILY HPI HPI Comments History of Present Illness Details 62-year-old female with psoriatic arthri tis returns for follow-up. Doing well overall. Has not had any recurrent joint pain swelling or stiffness. Gets intermittent dry flaking skin behind both ears. Gets intermittent rashes at the inferior bra line that is not itchy or painful. Has not had any change in medications. Patient stated that she was on a statin for a few years and her cholesterol was not coming down, she was switched to Zetia which has been more effective. She has not been sick recently. Initial history: This is a 61-year-old female with a past medical history of dyslipidemia and hypertension who presents for evaluation of multiple joint pains. Patient stated that around 15 years ago she developed pain and swelling of her bilateral lower extremities as well as her hands and wrists. This was after her niacin dose was increased. She was treated with a short course of prednisone with resolution of her symptoms. Back in October 2021 she developed an itchy skin rash under her breasts and behind her ears. She was using triamcinolone cream with some improvement. She also had sore throat. She was evaluated by her PCP and her inflammatory markers were elevated. She was started on a prednisone taper with dramatic improvement of her symptoms in a few days, symptoms came back when prednisone was tapered off. She was evaluated by Dr. Ribeiro in December 2021 and deemed to have PMR. She was started on prednisone 15 mg daily and tapered by 1 mg a month. She is currently on 7 mg daily and she states that she is developing swelling of her wrists, fingers, knees, ankles. Continues to have morning stiffness lasting a few hours. Continues to have a skin rash behind her ears. There is no history suggestive of uveitis or IBD. Her nephew has ulcerative colitis [facility] Medical History Essential hypertension Mixed hyperlipidemia PMR (polymyalgia rheumatica) Hypothyroidism Surgical History History of lumpectomy of left breast Family History Mother Thyroid disease CHF (congestive heart failure) Myocardial infarct Hx of CABG Sister PVD (peripheral vascular disease) Colon cancer Father COPD (chronic obstructive pulmonary disease) Lung cancer Social History Household Members: Spouse Alcohol intake: current Alcohol intake frequency: does not drink Patient Tobacco Use Status: Former Tobacco user Quit Date: 1999 Current occupational status: employed 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 [facility] Denies arthralgias, Denies joint swelling and Denies stiffness Skin/Breast Reports rash Physical Exam Vital Signs: Last Vital Signs Temp 97.4 F 07/31/23 07:41 Pulse 77 07/31/23 07:41 BP 110/62 07/31/23 07:41 Pulse Ox 98 07/31/23 07:41 Oxygen Delivery Method Room Air 07/31/23 07:41 BMI result Body Mass Index 32.4 Const General: cooperative, healthy appearing and comfortable Nutritional Appearance: average body habitus Limitations: no limitations HEENT Head: Yes normocephalic and Yes atraumatic Mouth: moist mucous membranes Resp Effort & Inspection: normal respiratory effort and able to speak in complete sentences Auscultation: clear to auscultation bilaterally Cardio Rate: regular rate Rhythm: regular rhythm Extrem Other: No active synovitis Results Reviewed Results Reviewed: Laboratory Tests 10/10/22 10/10/22 11/07/22 08:48 08:48 09:27 AST 17 20 ALT 20 Alkaline Phosphatase 67 11/07/22 11/07/22 03/29/23 09:27 09:27 12:30 AST 36 H ALT 36 H Alkaline Phosphatase 71 03/29/23 03/29/23 04/26/23 12:30 12:30 10:25 AST 32 H ALT 43 H Alkaline Phosphatase 91 04/26/23 04/26/23 07/29/23 10:25 10:25 16:34 AST 38 H ALT 36 H Alkaline Phosphatase 98 07/29/23 07/29/23 16:34 16:34 AST ALT 47 H Alkaline Phosphatase 107 Assessment & Plan Assessment & Plan (1) Psoriatic arthritis: Comment: initially dx with PMR then PsA dx 10/04 MTX started 10/04, then patient developed pneumonitis/pneumonia. MTX DC 11/04 LEF 03/06 DC 04/06 transaminitis Code(s): L40.50 - Arthropathic psoriasis, unspecified Plan: This is a 62-year-old female with psoriatic arthritis who presents for follow- up. She is in remission off DMARDs. There is no synovitis on exam. Inflammatory markers are normal Will continue to monitor patient off DMARDs Will re-evaluate in 6 months Labs before next visit in 6 months (2) Transaminitis: Code(s): R74.01 - Elevation of levels of liver transaminase levels Plan: Mild transaminitis. Patient was on leflunomide for 1 month and it was discontinued due to transaminitis. Discussed with patient that there is increased incidence of IZQUIERDO in patients with psoriasis and psoriatic arthritis. I would like patient to get evaluated by a absorber operator to rule out any other causes. Patient will reach out to her PCP to request a referral to GI/dispute resolution specialist Plan I spent 26 minutes reviewing patient's chart, evaluating patient, ordering diagnostic workup, counseling patient and documenting in the chart Orders: Orders Complete Blood Count Auto Diff 6 Months L40.50 - Arthropathic psoriasis, unspecified Comprehensive Met. Panel 6 Months L40.50 - Arthropathic psoriasis, unspecified C Reactive Protein 6 Months L40.50 - Arthropathic psoriasis, unspecified Erythrocyte Sedimentation Rate 6 Months L40.50 - Arthropathic psoriasis, unspecified Coding Level of Care Code Est Pt Level 4 (60606) Diagnoses Psoriatic arthritis L40.50 Transaminitis R74.01
[2023-07-31 07:41] VITALS: BP 110/62; PULSE 77; TEMP 36.3; O2SAT 98; BMI 32.4
== END 2023-07-31 08:02 | disposition home or self-care (01) ==
PROVIDERS: PCP Nurse Practitioner Family; Visit Provider Student in an Organized Health Care Education/Training Program
DX: L40.50 Arthropathic psoriasis, unspecified (principal); R74.01 Elevation of levels of liver transaminase levels
CPT/HCPCS: 99214

== ENCOUNTER → 2023-07-31 07:35 | Outpatient (BNVA) | payer OTHER, SELFPAY | PROVIDERS: PCP Nurse Practitioner Family; Visit Provider Student in an Organized Health Care Education/Training Program ==

== ENCOUNTER 2024-01-27 16:24 | Outpatient (REF) | payer OTHER, SELFPAY ==
[2024-01-27 16:38] LABS: MANUAL DIFF FLAG NO
[2024-01-27 17:22] LABS: Basophils Absolute Auto 0.1 X10*3/uL (0.0-0.2); Basophils Percent Auto 0.8 % (0-2); Eosinophils Absolute Auto 0.2 X10*3/uL (0.0-0.4); Eosinophils Percent Auto 2.4 % (0-4); Hematocrit 43.4 % (37.0-47.0); Hemoglobin 14.3 g/dl (12.0-16.0); Imm Gran Abs Auto 0.03 X10*3/uL (0.00-0.03); Imm Gran Pct Auto 0.4 % (0.0-0.4); Lymphocytes Percent Auto 37.6 % (20-40); Mean Corpuscular HGB Conc 32.9 g/dl (31.0-35.0); Mean Corpuscular Hemoglobin 30.8 pg (27.0-33.0); Mean Corpuscular Volume 93.3 fL (80.0-98.0); Mean Platelet Volume 10.2 fL (9.4-12.3); Monocytes Absolute Auto 0.6 X10*3/uL (0.1-1.2); Monocytes Percent Auto 7.5 % (2-11); Neutrophils Absolute Auto 4.1 x10*3/uL (2.0-8.3); Neutrophils Percent Auto 51.3 % (45-73); Platelet Count 258 X10*3/uL (160-400); Red Blood Count 4.65 X10*6/uL (4.20-5.50); Red Cell Distribution Width 12.2 % (11.0-16.0); White Blood Count 7.9 X10*3/uL (4.8-10.8)
[2024-01-27 17:42] LABS: Alanine Aminotransferase 48 U/L (0-31); Albumin Level 4.5 g/dL (3.5-5.0); Alkaline Phosphatase 100 U/L (39-117); Anion Gap 13 (12-20); Aspartate Amino Transferase 35 U/L (5-31); Bilirubin Total 0.4 mg/dL (0.0-1.0); Blood Urea Nitrogen 13 mg/dL (9-16); C Reactive Protein 0.14 mg/dL (< or = 0.50); Calcium 10.9 mg/dL (8.4-10.2); Carbon Dioxide 26 mmol/L (22-29); Chloride 107 mmol/L (96-108); Estimated Glomerular Filt Rate 56; Glucose Random 88 mg/dL (60-115); Sodium 142 mmol/L (135-145); Total Protein 8.1 g/dL (6.5-8.0)
[2024-01-27 18:09] LABS: Erythrocyte Sedimentation Rate 14 MM/HR (0-20)
== END 2024-01-27 16:25 | disposition home or self-care (01) ==
LOC: HO.LAB 16:24
PROVIDERS: PCP Nurse Practitioner Family; Visit Provider Student in an Organized Health Care Education/Training Program
DX: L40.50 Arthropathic psoriasis, unspecified (principal)
CPT/HCPCS: 36415; 80053; 85025; 85652; 86140

== ENCOUNTER 2024-01-29 07:34 | Outpatient (AMB) | payer OTHER, SELFPAY ==
--- NOTE | 2024-01-29 07:36 | MHC.OFFVIS ---
Vital Signs 01/29/24 07:41 Height 5 ft 2 in Weight 179 lb 0.246 oz BMI 32.7 BP 122/70 Blood Pressure Location Rt brachial Position Sitting Pulse 73 Pulse Source Pulse Oximeter Pulse Oximetry (%) 99 Oxygen Delivery Method Room Air Intake Visit Reasons: PsA/CM Intake Note: Patient presents for PsA. Allergies Thiazides Allergy (Intermediate, Verified 01/29/24 07:39) makes her jumpy Medication List - Last Reconciled 01/29/24 by Kevin Alegria MD amlodipine 10 mg PO DAILY clotrimazole 1% appl topical ezetimibe 10 mg PO DAILY levothyroxine 75 mcg PO QAM metoprolol succinate ER 50 mg PO DAILY triamcinolone acetonide 0.1% 1 appl topical DAILY HPI Comments Details: 63-year-old female with psoriatic arthritis returns for follow-up. Doing well overall. Has not had any recurrent joint pain swelling or stiffness. Gets intermittent dry flaking skin behind both ears. Gets intermittent rashes at the inferior bra line that is not itchy or painful. Has not had any change in medications. She was evaluated by poured concrete wall technician, she had an ultrasound and she was advised to lose weight Initial history: This is a 61-year-old female with a past medical history of dyslipidemia and hypertension who presents for evaluation of multiple joint pains. Patient stated that around 15 years ago she developed pain and swelling of her bilateral lower extremities as well as her hands and wrists. This was after her niacin dose was increased. She was treated with a short course of prednisone with resolution of her symptoms. Back in October 2021 she developed an itchy skin rash under her breasts and behind her ears. She was using triamcinolone cream with some improvement. She also had sore throat. She was evaluated by her PCP and her inflammatory markers were elevated. She was started on a prednisone taper with dramatic improvement of her symptoms in a few days, symptoms came back when prednisone was tapered off. She was evaluated by Dr. Ribeiro in December 2021 and deemed to have PMR. She was started on prednisone 15 mg daily and tapered by 1 mg a month. She is currently on 7 mg daily and she states that she is developing swelling of her wrists, fingers, knees, ankles. Continues to have morning stiffness lasting a few hours. Continues to have a skin rash behind her ears. There is no history suggestive of uveitis or IBD. Her nephew has ulcerative colitis [facility] Medical History Essential hypertension Mixed hyperlipidemia PMR (polymyalgia rheumatica) Hypothyroidism Surgical History History of lumpectomy of left breast Family History Mother Thyroid disease CHF (congestive heart failure) Myocardial infarct Hx of CABG Sister PVD (peripheral vascular disease) Colon cancer Father COPD (chronic obstructive pulmonary disease) Lung cancer Social History Household Members: Spouse Alcohol intake: current Alcohol intake frequency: does not drink Patient Tobacco Use Status: Former Tobacco user Current occupational status: employed 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 [employer] Denies arthralgias, Denies joint swelling and Denies stiffness Skin/Breast Reports rash Physical Exam Vital Signs: Last Vital Signs Pulse 73 01/29/24 07:41 BP 122/70 01/29/24 07:41 Pulse Ox 99 01/29/24 07:41 Oxygen Delivery Method Room Air 01/29/24 07:41 BMI result Body Mass Index 32.7 Const General: cooperative, healthy appearing and comfortable Nutritional Appearance: average body habitus Limitations: no limitations HEENT Head: Yes normocephalic and Yes atraumatic Resp Effort & Inspection: normal respiratory effort and able to speak in complete sentences Cardio Rate: regular rate Rhythm: regular rhythm Skin Other: Subtle psoriasis patches behind both ears Extrem Other: No active synovitis Assessment & Plan Assessment & Plan (1) Psoriatic arthritis: Comment: initially dx with PMR then PsA dx 10/04 MTX started 10/04, then patient developed pneumonitis/pneumonia. MTX DC 11/04 LEF 03/06 DC 04/06 transaminitis In remission since 04/2023 off DMARDs Code(s): L40.50 - Arthropathic psoriasis, unspecified Category: Medical Plan: This is a 63-year-old female with psoriatic arthritis who presents for follow-up. She is in remission off DMARDs. There is no synovitis on exam. Inflammatory markers are normal At this time, I advised patient to return to clinic as needed (2) Transaminitis: Code(s): R74.01 - Elevation of levels of liver transaminase levels Category: Medical Plan: Mild transaminitis. Patient was on leflunomide for 1 month and it was discontinued due to transaminitis. Her transaminitis persists. Discussed with patient that there is increased incidence of IZQUIERDO in patients with psoriasis and psoriatic arthritis. She stated that she was evaluated by poured concrete wall technician and had an ultrasound, records not available to me, she was advised to lose weight. Likely fatty liver (3) Hypercalcemia: Code(s): E83.52 - Hypercalcemia Category: Medical Plan: Calcium 10.9 today, was elevated on previous set of labs as well 10.4. Advised patient to seek evaluation by an advertising copy writer Plan I spent 26 minutes reviewing patient's chart, evaluating patient, counseling patient and documenting in the chart Coding Level of Care Code Est Pt Level 4 (66410) Diagnoses Psoriatic arthritis L40.50 Transaminitis R74.01 Hypercalcemia E83.52
[2024-01-29 07:41] VITALS: BP 122/70; PULSE 73; O2SAT 99; BMI 32.7
== END 2024-01-29 08:00 | disposition home or self-care (01) ==
PROVIDERS: PCP Nurse Practitioner Family; Visit Provider Student in an Organized Health Care Education/Training Program
DX: L40.50 Arthropathic psoriasis, unspecified (principal); R74.01 Elevation of levels of liver transaminase levels; E83.52 Hypercalcemia
CPT/HCPCS: 99214

== ENCOUNTER → 2024-01-29 07:34 | Outpatient (BNVA) | payer OTHER, SELFPAY | PROVIDERS: PCP Nurse Practitioner Family; Visit Provider Student in an Organized Health Care Education/Training Program ==